=== PATIENT | female | born 1950 | race American Indian/Alaskan Native ===

== ENCOUNTER 2017-12-11 08:06 | Outpatient (CLI) | payer MEDICARE ==
--- NOTE | 2017-12-11 16:00 | Mammography Report ---
BILATERAL DIGITAL SCREENING MAMMOGRAM with CAD: 12/11/17 08:06:00 CLINICAL: Routine screening. COMPARISON:12/08/16 FINDINGS: The breasts are heterogeneously dense, which may obscure small masses. Left asymmetries require additional imaging.No architectural distortion or suspicious calcifications. IMPRESSION: Left asymmetries requiring further workup. BI-RADS CATEGORY: 0 -- Additional Imaging Evaluation Required RECOMMENDATION: Recall for left lateralmedial and spot magnification MLO and CC views and left breast ultrasound needed. ACR BI-RADS MAMMOGRAPHIC CODES: 0 = Needs additional imaging evaluation; 1 = Negative; 2 = Benign; 3 = Probably benign; 4 = Suspicious; 5 = Malignant; 6 = Known biopsy-proven malignancy COMMENT: 1. Dense breast tissue, i.e., adenosis, fibrocystic changes, etc., may obscure an underlying neoplasm. 2. Approximately 10% of cancers are not detected with mammography. 3. A negative mammography report should not delay biopsy if a clinically suspicious mass is present. COMMENT: Patient follow-up letters are generated via our [employer] application.
== END 2017-12-11 08:07 | disposition home or self-care (01) ==
LOC: SPVWC 08:06
PROVIDERS: ATTEND Family Medicine
DX: Z12.31 Encounter for screening mammogram for malignant neoplasm of breast (principal)
CPT/HCPCS: 77067

== ENCOUNTER 2019-01-01 11:30 | Outpatient (CLI) | payer MEDICARE | END 2019-01-01 11:31 | disposition home or self-care (01) | LOC: LAB 11:30 | PROVIDERS: ATTEND Specialist | DX: G70.00 Myasthenia gravis without (acute) exacerbation (principal) | CPT/HCPCS: 36415; 83519; 86060 ==

== ENCOUNTER 2019-02-01 08:32 | Emergency (ER) | payer MEDICARE ==
[2019-02-01 08:39] VITALS: BP 159/74
--- NOTE | 2019-02-01 09:36 | Emergency Department Report ---
ED Fall HPI - General Chief Complaint: Fall Stated Complaint: LFT SIDE/BACK PAIN Time Seen by Provider: 02/01/19 09:27 Source: family Mode of arrival: Wheelchair - History of Present Illness Initial Comments: Patient is 68-year-old female, nontoxic, is aphasic secondary to stroke from last year. Patient presented with her . Patient stated that she fell this morning after she missed the chair and landed on the left side. Patient is complaining of back pain. Patient denied any head injury, weakness numbness or tingling sensation. MD Complaint: fall -: This morning Fall From: standing Fall Witnessed: yes, by family Place Fall Occurred: home Loss of Consciousness: none Prolonged Down Time?: no Symptoms Prior to Fall: none Location: chest, back Quality: sharp Associated Symptoms: denies - Related Data Allergies Allergy/AdvReac Type Severity Reaction Status Date / Time No Known Allergies Allergy Unverified 02/01/19 10:17 ED Review of Systems ROS: Stated complaint: LFT SIDE/BACK PAIN Other details as noted in HPI Comment: All other systems reviewed and negative Constitutional: denies: chills, fever Respiratory: denies: cough, orthopnea, shortness of breath, SOB with exertion, SOB at rest, wheezing Cardiovascular: denies: chest pain, palpitations Gastrointestinal: denies: abdominal pain, nausea, vomiting, diarrhea, constipation, hematemesis, hematochezia Musculoskeletal: back pain Neurological: denies: headache, weakness, numbness, paresthesias, confusion ED Past Medical Hx - Social History Smoking Status: Current Every Day Smoker Substance Use Type: None ED Physical Exam - General Limitations: Physical Limitation General appearance: alert, in no apparent distress - Head Head exam: Present: atraumatic, normocephalic, normal inspection - Eye Eye exam: Present: normal appearance, PERRL - ENT ENT exam: Present: normal exam, normal orophraynx, mucous membranes moist - Neck Neck exam: Present: normal inspection, full ROM. Absent: tenderness, meningismus, lymphadenopathy, thyromegaly - Respiratory Respiratory exam: Present: normal lung sounds bilaterally, chest wall tenderness. Absent: respiratory distress, wheezes, rales, rhonchi - Cardiovascular Cardiovascular Exam: Present: regular rate, normal rhythm, normal heart sounds - GI/Abdominal GI/Abdominal exam: Present: soft, normal bowel sounds. Absent: distended, tenderness, guarding, rebound, rigid, organomegaly, mass, bruit, pulsatile mass, hernia - Extremities Exam Extremities exam: Present: normal inspection, full ROM, normal capillary refill - Neurological Exam Neurological exam: Present: alert, oriented X3 - Skin Skin exam: Present: warm, intact, normal color ED Course Vital Signs 02/01/19 08:39 Temperature 98.7 F Pulse Rate 99 H Respiratory 16 Rate Blood Pressure 159/74 [Right] O2 Sat by Pulse 96 Oximetry ED Medical Decision Making - Radiology Data Radiology results: report reviewed X-ray lumbar spine and x-ray chest with left rib detail is negative for acute finding. Critical care attestation.: If time is entered above; I have spent that time in minutes in the direct care of this critically ill patient, excluding procedure time. ED Disposition Clinical Impression: Fall, Contusion Disposition: DC-01 TO HOME OR SELFCARE Is pt being admited?: No Condition: Stable Instructions: Fall Prevention for Older Adults (ED), Contusion in Adults (ED) Referrals: CELENA NATH MD [Staff Physician] - 3-5 Days
[2019-02-01] MEDS ORDERED: NORCO 5/325 ONE (10:14)
[2019-02-01] MEDS ORDERED: NORCO 5/325 PO ONE (10:18)
--- NOTE | 2019-02-01 11:23 | XRay Report ---
PROCEDURE: XR RIBS UNI W PA CHEST 3+V LT TECHNIQUE: Bilateral rib radiographs, minimum of 4 views, including PA projection. HISTORY: fall COMPARISONS: None . FINDINGS: Heart: Normal . Mediastinum/Vessels: Normal . Lungs: Interstitial markings throughout both lungs. No pleural effusion or pneumothorax. . Pleural space: Normal . Pneumothorax: None . Bony thorax/ribs: No acute or displaced rib fractures. IMPRESSION: No acute or displaced rib fractures. Interstitial markings throughout both lungs, likely arborist representative of chronic changes. Differential d iagnosis includes less likely mild interstitial edema . This document is electronically signed by Caro Wen MD., February 01 2019 11:21:31 AM ET
--- NOTE | 2019-02-01 11:32 | XRay Report ---
PROCEDURE: XR SPINE LUMBOSACRAL 2-3V TECHNIQUE: 3 views of the lumbar spine HISTORY: BACK INJURY COMPARISONS: None. FINDINGS: There are compression deformities of the T12, L2, and L4 vertebral bodies, of indeterminate age. Ther e is surrounding degenerative change including osteophyte formation. There is moderate diffuse facet arthropathy. There is diffuse osteopenia. The paravertebral soft tissues are normal. IMPRESSION: Compression deformities of T12, L2, and L4, of indeterminate age. Recommend comparison to any previou s studies. If there is concern for acute fracture, MRI can be obtained to evaluate for edema. This document is electronically signed by Caro Wen MD., February 01 2019 11:30:22 AM ET
== END 2019-02-01 11:13 | disposition home or self-care (01) ==
LOC: ED 08:32
DX: T14.8XXA Other injury of unspecified body region, initial encounter (principal); W18.30XA Fall on same level, unspecified, initial encounter; Y93.89 Activity, other specified; Y92.019 Unspecified place in single-family (private) house as the place of occurrence of the external cause; Y99.8 Other external cause status
CPT/HCPCS: 72100; 99283

== ENCOUNTER 2019-02-17 08:46 | Outpatient (CLI) | payer MEDICARE ==
[2019-02-17 09:11] LABS: Hematocrit 37.9 % (30.3-42.9); Hemoglobin 12.8 gm/dl (10.1-14.3); Mean Corpuscular HGB Conc 34 % (30-34); Mean Corpuscular Volume 95 fl (79-97); Platelet Count 270 K/mm3 (140-440); Red Cell Distribution Width 13.3 % (13.2-15.2)
[2019-02-17 09:38] LABS: Alanine Aminotransferase 10 units/L (7-56); Albumin 4.2 g/dL (3.9-5); BUN/Creatinine Ratio 20; Blood Urea Nitrogen 16 mg/dL (7-17); Calcium 9.2 mg/dL (8.4-10.2); Hemolysis Index 6
[2019-02-17 09:43] LABS: Erythrocyte Sedimentation Rate 17 mm/Hr (0-20)
== END 2019-02-17 08:47 | disposition home or self-care (01) ==
LOC: LAB 08:46
PROVIDERS: ATTEND Specialist
DX: I63.331 Cerebral infarction due to thrombosis of right posterior cerebral artery (principal)
CPT/HCPCS: 36415; 80053; 85027; 85652

== ENCOUNTER 2019-04-06 11:10 | Emergency (ER) | payer MEDICARE ==
--- NOTE | 2019-04-06 11:24 | Event Note ---
ED Screening Note Date of service: 04/06/19 Time: 11:22 ED Screening Note: 69 y/o female abd pain. No bowel movement in 3 weeks. This initial assessment/diagnostic orders/clinical plan/treatment(s) is/are subject to change based on patients health status, clinical progression and re-assessment by fellow clinical providers in the ED. Further treatment and workup at subsequent clinical providers discretion. Patient/guardian urged not to elope from the ED as their condition may be serious if not clinically assessed and managed. Initial orders include:
--- NOTE | 2019-04-06 12:25 | XRay Report ---
EXAM: XR ABD SERIES W CXR 1V HISTORY: abd pain and constipation time 3 weeks. TECHNIQUE: Supine and erect views of the abdomen; frontal single view CXR COMPARISON: None available. FINDINGS: ABDOMEN: Abundant fecal material is seen within the large bowel loops in keeping with severe constipa tion. There is no gross organomegaly, free intraperitoneal air, or suspicious calcifications seen. The visualized bony structures are within normal limits. CHEST: The heart size and mediastinum are within normal limits. The lung lam and costophrenic angl es are clear. There is no acute parenchymal infiltrate, pleural effusion, or pneumothorax seen. The v isualized bony structures are within normal limits. IMPRESSION: 1. Abundant fecal material is seen within the large bowel loops in keeping with severe constipation. 2. No gross organomegaly, free intraperitoneal air, or suspicious calcifications seen. 3. No evidence for acute cardiopulmonary disease seen. This document is electronically signed by Misbah Kearney MD., April 06 2019 12:22:58 PM ET
[2019-04-06 15:35] LABS: Bilirubin,Urine NEG (Negative); Blood,Urine NEG (Negative); Color,Urine Amber (Yellow); Mucus,Urine 3+ /HPF
[2019-04-06] MEDS ORDERED: FLEET MINERAL OIL PR ONE (16:45)
--- NOTE | 2019-04-06 16:47 | Emergency Department Report ---
ED Abdominal Pain HPI - General Chief Complaint: Abdominal Pain Stated Complaint: STOMACH PAIN Time Seen by Provider: 04/06/19 16:29 Source: patient Mode of arrival: Ambulatory Limitations: No Limitations - History of Present Illness Initial Comments: Reports history of constipation. reports patient recently prescribed Tylenol #3 for pain by an orthopedic surgeon. Reports patient had abdominal pain today that felt similar to past episodes of constipation. Denies trauma. Denies sick contacts. 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 Reports patient uses dulcolax and has been evaluated by GI in the past for constipation. MD Complaint: abdominal pain -: Gradual Location: diffuse Radiation: none Migration to: no migration Severity scale (0 -10): 2 Quality: cramping Consistency: intermittent, now resolved Improves With: nothing Worsens With: nothing Associated Symptoms: constipation. denies: nausea, vomiting, diarrhea, fever, chills, dysuria, hematemesis, hematochezia, melena, hematuria, anorexia, syncope - Related Data Previous Rx's Medication Instructions Recorded Last Taken Type Cyclobenzaprine HCl [Flexeril 5 MG 5 mg PO TID PRN #21 tab 02/01/19 Unknown Rx TAB] Naproxen [Naprosyn] 500 mg PO BID #14 tablet 02/01/19 Unknown Rx Allergies Allergy/AdvReac Type Severity Reaction Status Date / Time No Known Allergies Allergy Unverified 02/01/19 10:17 ED Review of Systems ROS: Stated complaint: STOMACH PAIN Other details as noted in HPI Other: GENERAL: No weight change, fatigue, weakness, fever, chills, or night sweats SKIN: No changes in skin or hair, no itching, no rashes, no jaundice HEAD: No trauma, headache, or visual changes EYES: No blurriness, tearing, itching, acute visual loss, conjunctival discoloration, or scleral icterus EARS: No hearing loss, tinnitus, vertigo, or earache NOSE: No rhinorrhea, stuffiness, sneezing, itching, or epistaxis MOUTH: No bleeding gums, hoarseness, sore throat, or swelling CARDIAC: No new murmur, chest pain, palpitations, dyspnea on exertion, orthopnea, PND, or edema RESPIRATORY: No shortness of breath, wheeze, cough, sputum production, hemoptysis, pneumonia, asthma, bronchitis, or emphysema GI: Abdominal pain and constipation. No change in appetite, nausea, vomiting, dysphagia, change in bowel frequency, diarrhea, bleeding, hematemesis, melena, hematochezia URINARY: No frequency, urgency, polyuria, dysuria, hematuria, or incontinence MUSCULOSKELETAL: No muscle weakness, joint stiffness, decrease in range of motion, redness, swelling NEUROLOGIC: No loss of sensation, numbness, tingling, tremors, weakness, paralysis, seizures HEMATOLOGIC: No anemia, easy bruising, bleeding, petechiae, or purpura ENDOCRINE: No hot or cold intolerance, sweating, polyuria, polydipsia or, polyphagia no thyroid problems ED Past Medical Hx - Past Medical History Previous Medical History?: Yes Hx Hypertension: Yes Hx CVA: Yes - Surgical History Past Surgical History?: Yes - Social History Smoking Status: Never Smoker Substance Use Type: None - Medications Home Medications: Home Medications Medication Instructions Recorded Confirmed Last Taken Type Cyclobenzaprine HCl [Flexeril 5 MG 5 mg PO TID PRN #21 tab 02/01/19 Unknown Rx TAB] Naproxen [Naprosyn] 500 mg PO BID #14 tablet 02/01/19 Unknown Rx ED Physical Exam - General Limitations: No Limitations - Other Other exam information: GENERAL: Patient in no acute distress HEAD: Normocephalic, atraumatic MOUTH: No erythema, bleeding, exudate HEART: Regular rate and rhythm, no murmur, S1-S2 are auscultated, pulses are symmetric LUNGS: No wheezing, rales, rhonchi, bilateral breath sounds ABDOMEN: Normal bowel sounds, no tenderness, no rebound, no guarding, no masses, no CVA tenderness MUSCULOSKELETAL: Normal joint range of motion, no redness, no swelling, no tenderness NEUROLOGIC: Alert, gross motor/sensation intact SKIN: Skin is warm and dry, no wounds, no rashes ED Course Vital Signs 04/06/19 11:22 Temperature 98.9 F Pulse Rate 81 Respiratory 16 Rate Blood Pressure 145/72 O2 Sat by Pulse 95 Oximetry ED Medical Decision Making - Lab Data Laboratory Results - last 24 hr 04/06/19 14:43 Urine Color Zoë Urine Turbidity Cloudy Urine pH 5.0 Ur Specific Rye 1.027 Urine Protein 100 mg/dl Urine Glucose (UA) Neg Urine Ketones Tr Urine Blood Neg Urine Nitrite Neg Urine Bilirubin Neg Urine Urobilinogen 4.0 Ur Leukocyte Esterase Neg Urine WBC (Auto) 15.0 H Urine RBC (Auto) 5.0 U Epithel Cells (Auto) 10.0 Urine Mucus 3+ - Radiology Data Radiology results: report reviewed - Medical Decision Making At 1649 patient comfortable. Updated with results. Offered laboratory testing in the ER for further evaluation. Patient and patient refuse laboratory testing and reports symptoms very similar to past episodes of constipation. Discussed concern for recent rx of Tylenol with codeine which may exacerbate constipation and recommended discontinuing that rx if any at all possible. Discussed increasing fiber in the patient's diet with possible prune juice as patient is unable to swallow some solids due to past CVA. Plan discharge with enema for home. Patient and agree with plan and to continue to monitor symptoms and will return if any worsening. Critical care attestation.: If time is entered above; I have spent that time in minutes in the direct care of this critically ill patient, excluding procedure time. ED Disposition Clinical Impression: Constipation Qualifiers: Constipation type: unspecified constipation type Qualified Code(s): K59.00 - Constipation, unspecified Abdominal pain Qualifiers: Abdominal location: unspecified location Qualified Code(s): R10.9 - Unspecified abdominal pain Disposition: - TO HOME OR SELFCARE Is pt being admited?: No Condition: Stable Instructions: Abdominal Pain (ED), Constipation (ED) Referrals: KODAK ARCHULETA MD [Primary Care Provider] - 2-3 Days [facility] [Provider Group] - 2-3 Days Time of Disposition: 16:52
[2019-04-06 17:00] VITALS: BP 140/80
== END 2019-04-06 16:57 | disposition home or self-care (01) ==
LOC: ED 11:10
DX: K59.00 Constipation, unspecified (principal); I10 Essential (primary) hypertension; Z86.73 Personal history of transient ischemic attack (TIA), and cerebral infarction without residual deficits; Z79.899 Other long term (current) drug therapy
CPT/HCPCS: 74022; 81001; 87086; 99284

== ENCOUNTER 2019-09-12 18:20 | Emergency (ER) | payer MEDICARE ==
--- NOTE | 2019-09-12 19:22 | Event Note ---
ED Screening Note ED Screening Note: spasms in the bilateral legs began today, states that the left is more painful than the right no acute leg swelling HPI given by as pt is non verbal PMHx CVA, HTN no allergies to meds This initial assessment/diagnostic orders/clinical plan/treatment(s) is/are subject to change based on patients health status, clinical progression and re- assessment by fellow clinical providers in the ED. Further treatment and workup at subsequent clinical providers discretion. Patient/guardian urged not to elope from the ED as their condition may be serious if not clinically assessed and managed. Initial orders include: labs
[2019-09-12 20:33] LABS: Hematocrit 37.3 % (30.3-42.9); Hemoglobin 12.5 gm/dl (10.1-14.3); Mean Corpuscular HGB Conc 34 % (30-34); Mean Corpuscular Volume 95 fl (79-97); Platelet Count 187 K/mm3 (140-440); Red Blood Count 3.95 M/mm3 (3.65-5.03); Red Cell Distribution Width 15.8 % (13.2-15.2)
[2019-09-12 20:56] LABS: Alanine Aminotransferase 9 units/L (7-56); Albumin 4.2 g/dL (3.9-5); BUN/Creatinine Ratio 20; Blood Urea Nitrogen 12 mg/dL (7-17); Calcium 9.6 mg/dL (8.4-10.2); Hemolysis Index 11
[2019-09-12] MEDS ORDERED: HYDROcodone/ACETAMINOPHEN 5-325 MG TAB PO ONE (21:27)
[2019-09-12] MEDS ORDERED: ONDANSETRON 4 MG/2 ML INJ IV ONE (21:50)
[2019-09-12] MEDS ORDERED: HYDROmorphone 1 MG/1 ML INJ IV ONE (21:50)
--- NOTE | 2019-09-12 22:07 | Emergency Department Report ---
ED Lower Extremity HPI - General Chief Complaint: Extremity Injury, Lower Stated Complaint: PAIN Time Seen by Provider: 09/12/19 19:20 Source: family Mode of arrival: Ambulatory Limitations: Other - History of Present Illness Initial Comments: Ms Schumacher is s 69 y/o aaf who presents for le pain and aching ,spasms in the bilateral legs began today, states that the left is more painful than the right no acute leg swelling, no numbness. pain is 7/10 aching with left knee swelling, pt denies fall. Pt has hx of arthralgia, and chronic joint and back pain. Pain is exacerbated byn movement, pt is non-ambulatory as baseline.. MD Complaint: other (knee pain chronic ) -: unknown (chronic ) Injury: Leg: Left Place: home Severity: moderate Severity scale (0 -10): 5 Improves With: nothing Worsens With: movement, palpation Associated Symptoms: swelling - Related Data Previous Rx's Medication Instructions Recorded Last Taken Type Cyclobenzaprine HCl [Flexeril 5 MG 5 mg PO TID PRN #21 tab 02/01/19 Unknown Rx TAB] Naproxen [Naprosyn] 500 mg PO BID #14 tablet 02/01/19 Unknown Rx Allergies Allergy/AdvReac Type Severity Reaction Status Date / Time No Known Allergies Allergy Verified 09/12/19 18:21 ED Review of Systems ROS: Stated complaint: PAIN Other details as noted in HPI Constitutional: denies: chills, fever Eyes: denies: eye pain, eye discharge, vision change ENT: denies: ear pain, throat pain Respiratory: denies: cough, shortness of breath, wheezing Cardiovascular: denies: chest pain, palpitations Endocrine: no symptoms reported Gastrointestinal: denies: abdominal pain, nausea, diarrhea Genitourinary: denies: urgency, dysuria, discharge Musculoskeletal: back pain, joint swelling, arthralgia Skin: denies: rash, lesions Neurological: denies: headache, weakness, paresthesias Psychiatric: denies: anxiety, depression Hematological/Lymphatic: denies: easy bleeding, easy bruising ED Past Medical Hx - Past Medical History Previous Medical History?: Yes Hx Hypertension: Yes Hx CVA: Yes - Surgical History Past Surgical History?: No - Social History Smoking Status: Never Smoker Substance Use Type: None - Medications Home Medications: Home Medications Medication Instructions Recorded Confirmed Last Taken Type Cyclobenzaprine HCl [Flexeril 5 MG 5 mg PO TID PRN #21 tab 02/01/19 Unknown Rx TAB] Naproxen [Naprosyn] 500 mg PO BID #14 tablet 02/01/19 Unknown Rx ED Physical Exam - General Limitations: Other General appearance: alert, in no apparent distress - Head Head exam: Present: atraumatic, normocephalic - Eye Eye exam: Present: normal appearance, EOMI Pupils: Present: normal accommodation - ENT ENT exam: Present: normal exam, mucous membranes moist - Neck Neck exam: Present: normal inspection - Respiratory Respiratory exam: Present: normal lung sounds bilaterally. Absent: respiratory distress, wheezes, rales, rhonchi, stridor, chest wall tenderness - Cardiovascular Cardiovascular Exam: Present: regular rate, normal rhythm, normal heart sounds. Absent: systolic murmur, diastolic murmur, rubs, gallop - GI/Abdominal GI/Abdominal exam: Present: soft, normal bowel sounds - Rectal Rectal exam: Present: deferred - Extremities Exam Extremities exam: Present: normal inspection - Back Exam Back exam: Present: normal inspection, full ROM, tenderness, paraspinal tenderness. Absent: CVA tenderness (R), CVA tenderness (L), muscle spasm, vertebral tenderness, rash noted - Neurological Exam Neurological exam: Present: alert, oriented X3, CN II-XII intact, normal gait - Psychiatric Psychiatric exam: Present: normal affect, normal mood - Skin Skin exam: Present: warm, dry, intact, normal color. Absent: rash ED Course Vital Signs 09/12/19 09/12/19 19:21 22:35 Temperature 98.3 F Pulse Rate 119 H 94 H Respiratory 18 18 Rate Blood Pressure 136/82 Blood Pressure 124/67 [Right] O2 Sat by Pulse 95 94 Oximetry ED Lower Extremity MDM - Lab Data Result diagrams: 09/12/19 20:16 09/12/19 20:16 Labs 09/12/19 09/12/19 20:16 20:16 WBC 6.5 RBC 3.95 Hgb 12.5 Hct 37.3 MCV 95 MCH 32 MCHC 34 RDW 15.8 H Plt Count 187 Sodium 142 Potassium 3.4 L Chloride 104.8 Carbon Dioxide 25 Anion Gap 16 BUN 12 Creatinine 0.6 L Estimated GFR > 60 BUN/Creatinine Ratio 20 Glucose 160 H Calcium 9.6 Phosphorus 3.20 Magnesium 2.10 Total Bilirubin 0.20 AST 18 ALT 9 Alkaline Phosphatase 70 Total Creatine Kinase 52 Total Protein 7.2 Albumin 4.2 Albumin/Globulin Ratio 1.4 - Radiology Data Radiology results: report reviewed, image reviewed prepetellofemoral DJD - Medical Decision Making Pain is improved, decreased to 1/10. after futher discussion with , pt was actually seen pt pcp ,Dr Isela Archuleta, and rx'd new pain medication , did drop off prescriptions to pharmacy, pending fill and pickup , however patient started crying due to pain so he brought her to emergency for evaluation and tx. this is likely arthralgia as rom is improved, pain is resolved, pt will be dc 'd to home with via pov. pt communicates that she feels much better at this time. This is and exacerbation of chronic pain and pt needed refills on pain medication. pt is in stable condition at this time. is picking up rx for pain medications tonight and will follow up with Dr Archuleta in 2-3 days. Critical care attestation.: If time is entered above; I have spent that time in minutes in the direct care of this critically ill patient, excluding procedure time. ED Disposition Clinical Impression: Arthralgia Qualifiers: Joint pain location: knee Laterality: left Qualified Code(s): M25.562 - Pain in left knee Chronic pain Qualifiers: Chronic pain type: chronic pain syndrome Qualified Code(s): G89.4 - Chronic pain syndrome Knee pain, left Qualifiers: Chronicity: chronic Qualified Code(s): M25.562 - Pain in left knee; G89.29 - Other chronic pain Disposition: DC- TO HOME OR SELFCARE Is pt being admited?: No Does the pt Need Aspirin: No Condition: Stable Instructions: Arthralgia (ED), Chronic Pain (ED) Referrals: ZONIA HERRING MD [Primary Care Provider] - 3-5 Days ISELA ARCHULETA MD [Referring] - 3-5 Days Time of Disposition: 23:00
--- NOTE | 2019-09-12 22:20 | XRay Report ---
Single lateral view of the left knee INDICATION: knee pain. COMPARISON: None. IMPRESSION: No acute osseous or soft tissue abnormality. Mild patellofemoral DJD. Signer Name: Jason Maria MD Signed: 09/12/2019 10:15 PM Workstation Name: [id number]
[2019-09-12 23:30] VITALS: BP 141/70
== END 2019-09-12 23:30 | disposition home or self-care (01) ==
LOC: ED 18:20
DX: M25.562 Pain in left knee (principal); G89.4 Chronic pain syndrome; I10 Essential (primary) hypertension; Z86.73 Personal history of transient ischemic attack (TIA), and cerebral infarction without residual deficits; Z79.899 Other long term (current) drug therapy
CPT/HCPCS: 36415; 73560; 80053; 82550; 83735; 84100; 85027; 96374; 96375; 99284; J1170; J2405